=== PATIENT | female | born 1965 | race Caucasian/White ===

== ENCOUNTER → 2017-03-24 | Outpatient (CLI) | payer BC ==
[~2017-03-24] VITALS: Ht 162.6 cm; Wt 145.2 kg
[~2017-03-24] MED LIST: ADVAIR 100/501 DISK IH; CALCIUM 500 +1 EAC4 PO; CYMBALTA60 MG PO; DAILY VALUE1 EACH PO; FLUOXETINE HCL20 MG PO; GLUCOSAMINE-CH1 EA45 PO; MAGNESIUM200 MG PO; NEURONTIN600 MG PO; NORCO 5/3251 TABLET PO; OMEGA 3-6-9 CO1 EACH PO; PROAIR HFA8.5 GM IH; ROBAXIN750 MG PO; STOOL SOFTENER100 M1 PO; SUPER B-50 COM1 EACH PO; ZESTORETIC 10-1 EAC1 PO
== END | disposition home or self-care (01) ==
LOC: AMB 13:47
PROC: 0DBP8ZX Excision of Rectum, Via Natural or Artificial Opening Endoscopic, Diagnostic (ICD-10-PCS; principal; 2017-03-24)
DX: K62.1 Rectal polyp (principal); Z12.11 Encounter for screening for malignant neoplasm of colon; Z86.010 Personal history of colon polyps; I10 Essential (primary) hypertension; Z80.0 Family history of malignant neoplasm of digestive organs; K57.30 Diverticulosis of large intestine without perforation or abscess without bleeding; K64.8 Other hemorrhoids; F41.9 Anxiety disorder, unspecified; J45.909 Unspecified asthma, uncomplicated; E66.9 Obesity, unspecified; Z68.43 Body mass index [BMI] 50.0-59.9, adult; Z87.891 Personal history of nicotine dependence
CPT/HCPCS: 88305; 93005; J2250; J3010

== ENCOUNTER 2018-02-23 21:15 | Inpatient (IN) | payer BC ==
[~2018-02-23] VITALS: Ht 162.6 cm; Wt 142.0 kg
[~2018-02-23 21:15] MED LIST changes: +DESYREL100 MG PO; -ZESTORETIC 10-1 EAC1 PO; +ZESTORETIC 20-1 EAC2 PO
[2018-02-24 06:01] VITALS: BP 134/67
[2018-02-24 12:44] VITALS: BP 168/72
[2018-02-24 15:38] VITALS: BP 164/76
[2018-02-24 15:41] VITALS: BP 122/58
[2018-02-24 20:44] VITALS: BP 110/57
[2018-02-25] VITALS (7 sets, daily range): BP systolic 134–160; BP diastolic 63–76
[2018-02-25 05:59] LABS: HEMATOCRIT 39.7 % (36.0-46.0); HEMOGLOBIN 12.7 G/DL (11.9-15.5); MCH 28.9 PG (29.0-34.0); MCV 90.2 FL (83-99); PLATELET COUNT 182 K/uL (156-360); RBC DIS.WIDTH-CV 13.9 % (11.8-14.6); RBC DIS.WIDTH-SD 46.4 % (39-53)
[2018-02-25 06:25] LABS: CHLORIDE 100 MEQ/L (99-109); CREATININE 0.9 MG/DL (0.6-1.3); GFR ESTIMATE (CALCULATED) > 59 mL/min/; GLUCOSE 85 mg/dL (70-99); POTASSIUM 4.8 MEQ/L (3.7-5.4); SODIUM 137 MEQ/L (136-147); UREA NITROGEN (BUN) 15 mg/dL (9-23)
[2018-02-25] MEDS ORDERED: ACTIGALL300 MG PO (13:16)
[2018-02-25] MEDS ORDERED: PRILOSEC20 MG PO (13:16)
[2018-02-25] MEDS ORDERED: DILAUDID4 MG PO (13:16)
[2018-02-25] MEDS ORDERED: ZOFRAN ODT8 MG PO (13:16)
[2018-02-26 04:24] VITALS: BP 138/68
[2018-02-26 08:27] VITALS: BP 121/56
[2018-02-26 08:43] LABS: HEMATOCRIT 40.1 % (36.0-46.0); MCH 29.4 PG (29.0-34.0); MCHC 32.4 G/DL (30.0-36.0); MCV 90.7 FL (83-99); PLATELET COUNT 156 K/uL (156-360); RBC DIS.WIDTH-CV 14.2 % (11.8-14.6); RBC DIS.WIDTH-SD 47.4 % (39-53); RED BLOOD COUNT 4.42 M/uL (3.80-5.20); WHITE BLOOD COUNT 8.6 K/uL (4.1-10.2)
[2018-02-26 08:54] LABS: CHLORIDE 103 MEQ/L (99-109); CREATININE 0.9 MG/DL (0.6-1.3); GFR ESTIMATE (CALCULATED) > 59 mL/min/; GLUCOSE 87 mg/dL (70-99); POTASSIUM 4.5 MEQ/L (3.7-5.4); SODIUM 140 MEQ/L (136-147); UREA NITROGEN (BUN) 10 mg/dL (9-23)
== END 2018-02-26 15:34 | disposition home or self-care (01) | DRG 621 ==
LOC: ENRESERV 21:15 → 2EAST 02-24 05:28 → 2SOUTH 02-24 05:28 → ENRESERV 02-24 10:37 → 2EAST 02-24 12:36 → 2SOUTH 02-24 14:22 → 2EAST 02-26 15:34
PROVIDERS: Surgery
PROC: 0DB64Z3 Excision of Stomach, Percutaneous Endoscopic Approach, Vertical (ICD-10-PCS; principal; 2018-02-24)
DX: E66.01 Morbid (severe) obesity due to excess calories (principal); Z68.43 Body mass index [BMI] 50.0-59.9, adult; G47.30 Sleep apnea, unspecified; K42.9 Umbilical hernia without obstruction or gangrene; R16.0 Hepatomegaly, not elsewhere classified; I10 Essential (primary) hypertension; J45.30 Mild persistent asthma, uncomplicated; F41.9 Anxiety disorder, unspecified; M19.90 Unspecified osteoarthritis, unspecified site; Z88.0 Allergy status to penicillin; Z87.891 Personal history of nicotine dependence
CPT/HCPCS: 80048; 85027; 88300; C9113; J0131; J0330; J1100; J1170; J1644; J1885; J2250; J2405; J2710; J2765; J3010; J3370; J3480; J7643; Q0175